=== PATIENT | female | born 1970 | race Hispanic/Latino ===

== ENCOUNTER 2017-05-04 20:08 | Emergency (ER) | payer SELFPAY ==
[~2017-05-04] VITALS: Ht 149.9 cm; Wt 46.4 kg
[~2017-05-04 20:08] MED LIST: NAPROSYN500 MG PO
[2017-05-04 21:04] LABS: HEMATOCRIT 45.2 % (37.0-47.0); HEMOGLOBIN 15.2 g/dl (12.0-16.0); IMMATURE GRANULOCYTES 0.4 % (0.0-1.0); MEAN CELL VOLUME 86.6 fL CALC (80.0-100.0); MEAN CORPUSCULAR HGB 29.1 pG CALC (26.0-32.0); MEAN CORPUSCULAR HGB CONC 33.6 g/L CALC (32.0-36.0); NEUT# 3.07 thou/uL (2.00-7.15); RED BLOOD COUNT 5.22 mill/uL (4.20-5.60); RED CELL DISTRI WIDTH 14.5 % (11.5-15.5)
[2017-05-04 21:05] LABS: URINE BILIRUBIN - DIPSTICK NEGATIVE (NEGATIVE); URINE BLOOD DIPSTICK MODERATE (NEGATIVE); URINE COLOR YELLOW; URINE GLUCOSE - DIPSTICK NEGATIVE (NEGATIVE); URINE KETONE 40 mg/dL (NEGATIVE); URINE LEUK ESTERASE NEGATIVE (NEGATIVE); URINE NITRITE - DIPSTICK NEGATIVE (Negative); URINE PH 5.5 (4.5-8.0); URINE PROTEIN - DIPSTICK 30 mg/dL (NEG-TRACE); URINE SPECIFIC GRAVITY >=1.030; URINE UROBILINOGEN - DIPSTICK 0.2 E.U./dL (0.2)
[2017-05-04 21:08] LABS: URINE CLARITY CLEAR
[2017-05-04 21:14] LABS: ALBUMIN 4.5 g/dL (3.2-5.0); ALKALINE PHOSPHATASE 68 u/l (38-126); ANION GAP 14 (6-22 (CALC)); BILIRUBIN, TOTAL 0.4 mg/dL (0.0-1.4); BUN 17 mg/dL (7-17); BUN/CREATININE RATIO 26 (12-20 (CALC)); CALCIUM 10.8 mg/dL (8.4-10.2); CARBON DIOXIDE 24 mmol/l (22-30); CHLORIDE 104 mmol/l (95-108); CREATININE 0.6 mg/dL (0.5-1.0); GFR > 60 ML/MIN (>=60 (CALC)); GFR FOR AFR.AMER. > 60 ML/MIN (>=60 (CALC)); GLUCOSE 89 mg/dL (65-105); POTASSIUM 3.7 mmol/l (3.5-5.1); SGOT/AST 34 u/l (14-36); SGPT/ALT 39 u/l (9-52); SODIUM 139 mmol/l (137-146); TOTAL PROTEIN 7.5 g/dL (6.3-8.2)
[2017-05-04 21:24] LABS: URINE BACTERIA RARE hpf; URINE SQUAMOUS EPITHELIAL CELL FEW EPI/hpf (0-FEW)
[2017-05-04] MEDS ORDERED: ZOFRAN ODT4 MG PO (22:44)
[2017-05-04 22:47] VITALS: BP 105/60
== END 2017-05-04 22:48 | disposition home or self-care (01) | DRG 392 ==
LOC: ED 20:08
PROVIDERS: Emergency Medicine
DX: R10.31 Right lower quadrant pain (principal); K52.9 Noninfective gastroenteritis and colitis, unspecified; R10.32 Left lower quadrant pain; R11.2 Nausea with vomiting, unspecified

== ENCOUNTER 2023-06-19 09:58 | Emergency (ER) | payer BC ==
[2023-06-19] VITALS (15 sets, daily range): BP systolic 106–129; BP diastolic 58–87
[~2023-06-19] VITALS: Ht 149.9 cm; Wt 50.5 kg
[~2023-06-19 09:58] MED LIST changes: +ZOFRAN ODT4 MG PO
[2023-06-19] MEDS ORDERED: GABAPENTIN400 M2 PO (10:58)
[2023-06-19] MEDS ORDERED: TRAZODONE50 MG PO (10:59)
[2023-06-19] MEDS ORDERED: PROAIR DIG108 MCG/AC (11:00)
[2023-06-19 12:32] LABS: BASO% 0.7 % (0-3); EOS% 3.3 % (0-8); HEMOGLOBIN 15.5 g/dl (12.0-16.0); IMMATURE GRANULOCYTES 0.2 % (0.0-5.0); LYMPH% 26.2 % (15-41); MEAN CELL VOLUME 89.7 fL CALC (80.0-100.0); MEAN CORPUSCULAR HGB CONC 32.3 g/dL CAL (32.0-36.0); MONO% 12.3 % (2-13); NEUT# 3.31 thou/uL (2.00-7.15); NEUT% 57.3 % (42-76); RED BLOOD COUNT 5.35 mill/uL (4.20-5.60); RED CELL DISTRI WIDTH 13.1 % (11.5-15.5)
[2023-06-19 12:38] LABS: ALBUMIN 4.5 g/dL (3.2-5.0); ALKALINE PHOSPHATASE 97 u/l (38-126); ANION GAP 14 (6-22 (CALC)); BILIRUBIN, TOTAL 0.4 mg/dL (0.02-1.3); BUN 11 mg/dL (7-17); BUN/CREATININE RATIO 18 (12-20 (CALC)); CARBON DIOXIDE 26 mmol/l (22-30); CHLORIDE 105 mmol/l (95-108); CREATININE 0.6 mg/dL (0.5-1.0); GFR FOR AFR.AMER. > 60 ML/MIN (>=60 (CALC)); GFR OTHER RACES > 60 ML/MIN (>=60 (CALC)); LIPASE 79 u/l (23-300); POTASSIUM 4.1 mmol/l (3.5-5.1); SGOT/AST 29 u/l (14-36); SODIUM 140 mmol/l (137-146); TOTAL PROTEIN 7.5 g/dL (6.3-8.2)
[2023-06-19 13:12] LABS: URINE BILIRUBIN - DIPSTICK Negative (NEGATIVE); URINE BLOOD DIPSTICK Negative (NEGATIVE); URINE GLUCOSE - DIPSTICK Negative (NEGATIVE); URINE KETONE 15 mg/dL (NEGATIVE); URINE LEUK ESTERASE Trace (NEGATIVE); URINE NITRITE - DIPSTICK Negative (Negative); URINE PROTEIN - DIPSTICK Negative (NEG-TRACE); URINE UROBILINOGEN - DIPSTICK 0.2 E.U./dL (0.2)
[2023-06-19 13:15] LABS: URINE COLOR Yellow
[2023-06-19] MEDS ORDERED: MIRALAX17 GM PO (14:16)
[2023-06-19] MEDS ORDERED: DICYCLOMINE HYD10 MG PO (14:16)
[2023-06-20] MEDS ORDERED: DICYCLOMINE HYD10 MG PO (08:03)
[2023-06-20] MEDS ORDERED: MIRALAX17 GM PO (08:03)
== END 2023-06-19 14:44 | disposition home or self-care (01) | DRG 392 ==
LOC: ED 09:58
PROVIDERS: Nurse Practitioner
DX: K59.00 Constipation, unspecified (principal); J45.909 Unspecified asthma, uncomplicated